=== PATIENT | female | born 1960 | race Caucasian/White ===

== ENCOUNTER → 2016-11-01 | Emergency (ER) | payer OTHER ==
[~2016-11-01] MED LIST: ASPI81TA PO; CALC-317 PO; FLUO20CA19 PO; METO-5 PO; PENT400T21 PO; TRAM50TA2 PO
== END | disposition left against medical advice (07) ==
LOC: ER
DX: M25.552 Pain in left hip (principal); Z53.21 Procedure and treatment not carried out due to patient leaving prior to being seen by health care provider; W19.XXXA Unspecified fall, initial encounter; Y93.89 Activity, other specified; Y99.8 Other external cause status; Y92.89 Other specified places as the place of occurrence of the external cause

== ENCOUNTER 2017-02-25 18:06 | Emergency (ER) | payer OTHER ==
[~2017-02-25] VITALS: Ht 162.6 cm; Wt 53.5 kg
[2017-02-25 18:29] VITALS: BP 101/59
== END 2017-02-26 03:31 | disposition left against medical advice (07) ==
LOC: ER 18:06
DX: R55 Syncope and collapse (principal); M54.5 Low back pain; Z53.21 Procedure and treatment not carried out due to patient leaving prior to being seen by health care provider

== ENCOUNTER 2017-05-19 06:49 | Inpatient (IN) | payer OTHER ==
[~2017-05-19] VITALS: Ht 167.6 cm; Wt 62.0 kg
[2017-05-19] MEDS ORDERED: SODIUM CHLORIDE 0.9% 1,000 ML IV ONE (07:58)
[2017-05-19] MEDS ORDERED: ONDANSETRON HCL 4 MG/2 ML VIAL IV ONE ×2 (08:00→12:45)
[2017-05-19] MEDS ORDERED: MORPHINE SULFATE 4 MG/ML SYR/VIAL IV ONE ×2 (08:00→12:45)
[2017-05-19 08:15] LABS: Basophils # (auto) 0 uL; Eosinophils # (auto) 0 uL; Lymphocytes # (auto) 1.3 uL; Monocytes # (auto) 0.8 uL
[2017-05-19 08:16] LABS: Basophils % (auto) 0.1 % (0.0-2.0); Hematocrit 37.8 % (36.0-46.0); Hemoglobin 12.9 g/dL (12.2-16.2); Lymphocytes % (auto) 10.9 % (10.0-50.0); Mean Corpuscular Hemoglobin 34.3 pg (28.0-32.0); Mean Corpuscular Hgb Conc. 34.2 g/dL (32.0-36.0); Mean Corpuscular Volume 100.2 fL (80.0-100.0); Monocytes % (auto) 6.6 % (0.0-12.0); Neutrophils # (auto) 10.1 uL; Neutrophils % (auto) 82.4 % (37.0-80.0); Nucleated Red Blood Cells % 0.2 %; Platelet Count (auto) 134 10^3/uL (140-450); Red Blood Cells 3.77 10^6/uL (4.0-5.20); Red Cell Distribution Width 14.7 % (11.8-14.3); White Blood Cell 12.2 10^3/uL (4.4-10.8)
[2017-05-19 08:31] LABS: BUN/Creatinine Ratio 13.8; Calcium 8.1 mg/dL (8.5-10.1); Magnesium 1.3 mg/dL (1.6-2.6); Potassium 3.1 mmol/L (3.5-5.1)
[2017-05-19 08:34] LABS: Bilirubin, Total 0.6 mg/dL (0.2-1.0)
[2017-05-19 10:13] LABS: Urine Bacteria NONE SEEN /hpf (None Seen); Urine Blood Negative /uL (Negative); Urine Specific Gravity 1.005 (1.001-1.035); Urine WBC 2 /hpf (0 - 5)
[2017-05-19 10:31] LABS: Amphetamine Screen, Urine NEGATIVE (NEGATIVE); Barbiturate Scree,Urine NEGATIVE (NEGATIVE); Benzodiazephine Screen, Urine NEGATIVE (NEGATIVE); Cannabinoid Screen, Urine POSITIVE (NEGATIVE); Cocaine Screen, Urine NEGATIVE (NEGATIVE); Opiate Scree,Urine POSITIVE (NEGATIVE); Phencyclidine Screen, Urine NEGATIVE (NEGATIVE)
[2017-05-19] MEDS ORDERED: ONDANSETRON HCL 4 MG/2 ML VIAL IV PRN (15:30)
[2017-05-19] MEDS ORDERED: LORazepam 2MG/ML-1ML VIAL IV PRN (15:30)
[2017-05-19] MEDS ORDERED: chlordiazePOXIDE HCL 25 MG CAP PO PRN (15:30)
[2017-05-19] MEDS ORDERED: NITROGLYCERIN 0.4 MG SL TAB SL PRN (15:30)
[2017-05-19] MEDS ORDERED: ACETAMINOPHEN 325 MG TAB PO PRN (15:30)
[2017-05-19] MEDS ORDERED: MORPHINE SULFATE 4 MG/ML SYR/VIAL IV PRN (15:30)
[2017-05-19] MEDS ORDERED: MULTIPLE VITAMIN TAB PO ONE (15:45)
[2017-05-19] MEDS ORDERED: PARoxetine 20 MG TAB PO ONE (15:45)
[2017-05-19] MEDS: GABAPENTIN 300 MG CAP PO SCH ×2 (16:09→21:47)
[2017-05-19] MEDS: HYDROcodone-ACET 5/325MG TAB PO PRN ×2 (16:12→20:15)
[2017-05-19] MEDS: MORPHINE SULFATE 4 MG/ML SYR/VIAL IV PRN ×2 (17:41→22:54)
[2017-05-19 18:45] VITALS: BP 146/86
[2017-05-19] MEDS: CALCIUM W/VIT D (600MG/400IU) TAB PO SCH (18:46)
[2017-05-19] MEDS: BOOST PLUS 8 ounce PO SCH (18:52)
[2017-05-19] MEDS ORDERED: POTASSIUM CHL 10 Meq TABLET PO ONE (19:45)
[2017-05-19 20:00] VITALS: BP 132/74
[2017-05-19 21:42] VITALS: BP 132/74
[2017-05-19] MEDS: FAMOTIDINE 20 MG TAB PO SCH (21:48)
[2017-05-19] MEDS: MAGNESIUM OXIDE 400 MG TAB PO SCH (21:48)
[2017-05-19] MEDS: TEMAZEPAM 15 MG CAP PO PRN (21:48)
[2017-05-19] MEDS: METOPROLOL TARTRATE 25 MG TAB PO SCH (21:49)
[2017-05-19] MEDS: SODIUM CHLOR 0.9% PF (SALINE LOCK) 10ML VIAL IV SCH (21:55)
[2017-05-20] VITALS (7 sets, daily range): BP systolic 118–151; BP diastolic 51–79
[2017-05-20] MEDS: HYDROcodone-ACET 5/325MG TAB PO PRN ×3 (01:31→20:38)
[2017-05-20] MEDS: GABAPENTIN 300 MG CAP PO SCH ×3 (05:53→21:40)
[2017-05-20] MEDS: MORPHINE SULFATE 4 MG/ML SYR/VIAL IV PRN ×4 (05:53→22:40)
[2017-05-20] MEDS: SODIUM CHLOR 0.9% PF (SALINE LOCK) 10ML VIAL IV SCH ×3 (05:54→21:41)
[2017-05-20 06:56] LABS: Basophils # (auto) 0 uL; Basophils % (auto) 0.2 % (0.0-2.0); Eosinophils # (auto) 0 uL; Lymphocytes # (auto) 0.9 uL; Monocytes # (auto) 0.7 uL; Neutrophils # (auto) 6.3 uL; Neutrophils % (auto) 79.3 % (37.0-80.0); Nucleated Red Blood Cells % 0.1 %
[2017-05-20 06:58] LABS: Hematocrit 35.3 % (36.0-46.0); Hemoglobin 12.1 g/dL (12.2-16.2); Lymphocytes % (auto) 11.3 % (10.0-50.0); Mean Corpuscular Hemoglobin 34.9 pg (28.0-32.0); Mean Corpuscular Hgb Conc. 34.4 g/dL (32.0-36.0); Mean Corpuscular Volume 101.4 fL (80.0-100.0); Monocytes % (auto) 9.2 % (0.0-12.0); Platelet Count (auto) 117 10^3/uL (140-450); Red Blood Cells 3.48 10^6/uL (4.0-5.20); Red Cell Distribution Width 15.3 % (11.8-14.3)
[2017-05-20 06:59] LABS: INR 0.94 (0.9-1.15); Prothrombin Time 10.2 sec (9.37-12.3)
[2017-05-20 07:03] LABS: Potassium 3.4 mmol/L (3.5-5.1)
[2017-05-20 07:11] LABS: Albumin 2.6 g/dL (3.4-5.0); BUN/Creatinine Ratio 11.9; Calcium 8.6 mg/dL (8.5-10.1)
[2017-05-20 07:14] LABS: Bilirubin, Total 0.5 mg/dL (0.2-1.0); Total Protein 5.6 g/dL (6.4-8.2)
[2017-05-20] MEDS: CALCIUM W/VIT D (600MG/400IU) TAB PO SCH ×2 (08:20→18:26)
[2017-05-20] MEDS: BOOST PLUS 8 ounce PO SCH ×3 (08:20→18:26)
[2017-05-20] MEDS: FAMOTIDINE 20 MG TAB PO SCH ×2 (10:45→21:40)
[2017-05-20] MEDS: MAGNESIUM OXIDE 400 MG TAB PO SCH ×2 (10:46→21:40)
[2017-05-20] MEDS: MULTIPLE VITAMIN TAB PO SCH (10:46)
[2017-05-20] MEDS: METOPROLOL TARTRATE 25 MG TAB PO SCH ×2 (10:46→21:41)
[2017-05-20] MEDS: PARoxetine 20 MG TAB PO SCH (10:47)
[2017-05-20] MEDS ORDERED: POTASSIUM CHL 10 Meq TABLET PO ONE (11:15)
[2017-05-20] MEDS ORDERED: MULT1TAB23 PO (17:29)
[2017-05-20] MEDS: TEMAZEPAM 15 MG CAP PO PRN (21:41)
[2017-05-21] MEDS: MORPHINE SULFATE 4 MG/ML SYR/VIAL IV PRN ×4 (04:06→20:06)
[2017-05-21 05:44] VITALS: BP 114/67
[2017-05-21] MEDS: HYDROcodone-ACET 5/325MG TAB PO PRN ×3 (06:37→17:30)
[2017-05-21] MEDS: GABAPENTIN 300 MG CAP PO SCH ×3 (06:37→20:07)
[2017-05-21] MEDS: SODIUM CHLOR 0.9% PF (SALINE LOCK) 10ML VIAL IV SCH ×3 (06:38→20:05)
[2017-05-21 06:44] LABS: Basophils # (auto) 0 uL; Eosinophils # (auto) 0 uL; Hematocrit 34.6 % (36.0-46.0); Hemoglobin 11.7 g/dL (12.2-16.2); Lymphocytes # (auto) 1.2 uL; Monocytes # (auto) 0.6 uL; Monocytes % (auto) 8.2 % (0.0-12.0); Nucleated Red Blood Cells % 0.1 %
[2017-05-21 06:46] LABS: Basophils % (auto) 0.2 % (0.0-2.0); Lymphocytes % (auto) 15.5 % (10.0-50.0); Mean Corpuscular Hemoglobin 34.6 pg (28.0-32.0); Mean Corpuscular Hgb Conc. 33.8 g/dL (32.0-36.0); Mean Corpuscular Volume 102.4 fL (80.0-100.0); Neutrophils # (auto) 5.7 uL; Neutrophils % (auto) 76.1 % (37.0-80.0); Red Blood Cells 3.38 10^6/uL (4.0-5.20); Red Cell Distribution Width 14.9 % (11.8-14.3); White Blood Cell 7.5 10^3/uL (4.4-10.8)
[2017-05-21 06:48] LABS: BUN/Creatinine Ratio 15.9; Calcium 9.3 mg/dL (8.5-10.1)
[2017-05-21 06:49] LABS: Platelet Count (auto) 127 10^3/uL (140-450)
[2017-05-21] MEDS: BOOST PLUS 8 ounce PO SCH ×3 (08:54→17:58)
[2017-05-21] MEDS: CALCIUM W/VIT D (600MG/400IU) TAB PO SCH ×2 (08:54→17:26)
[2017-05-21 09:00] VITALS: BP 134/61
[2017-05-21] MEDS: MAGNESIUM OXIDE 400 MG TAB PO SCH ×2 (09:31→20:07)
[2017-05-21] MEDS: MULTIPLE VITAMIN TAB PO SCH (09:31)
[2017-05-21] MEDS: PARoxetine 20 MG TAB PO SCH (09:31)
[2017-05-21] MEDS: FAMOTIDINE 20 MG TAB PO SCH ×2 (09:31→20:07)
[2017-05-21] MEDS: METOPROLOL TARTRATE 25 MG TAB PO SCH ×2 (09:32→20:07)
[2017-05-21] MEDS: DOCUSATE SOD 100 MG CAP PO PRN ×2 (12:16→20:07)
[2017-05-21 13:00] VITALS: BP 136/60
[2017-05-21 17:07] VITALS: BP 138/64
[2017-05-21] MEDS: TEMAZEPAM 15 MG CAP PO PRN (21:30)
[2017-05-21 21:46] VITALS: BP 130/72
[2017-05-22] MEDS: MORPHINE SULFATE 4 MG/ML SYR/VIAL IV PRN ×2 (02:29→09:38)
[2017-05-22] MEDS: HYDROcodone-ACET 5/325MG TAB PO PRN ×2 (04:05→12:05)
[2017-05-22] MEDS: SODIUM CHLOR 0.9% PF (SALINE LOCK) 10ML VIAL IV SCH ×2 (04:05→14:00)
[2017-05-22 05:00] VITALS: BP 124/70
[2017-05-22] MEDS: GABAPENTIN 300 MG CAP PO SCH ×2 (05:43→14:00)
[2017-05-22 07:14] LABS: Albumin 2.2 g/dL (3.4-5.0); BUN/Creatinine Ratio 20.8; Basophils # (auto) 0 uL; Bilirubin, Total 0.2 mg/dL (0.2-1.0); Calcium 8.3 mg/dL (8.5-10.1); Eosinophils # (auto) 0 uL; Monocytes # (auto) 0.7 uL; Nucleated Red Blood Cells % 0.1 %; Potassium 4.2 mmol/L (3.5-5.1); Total Protein 5.4 g/dL (6.4-8.2)
[2017-05-22 07:15] LABS: Basophils % (auto) 0.2 % (0.0-2.0); Hematocrit 33.5 % (36.0-46.0); Hemoglobin 11.3 g/dL (12.2-16.2); Lymphocytes # (auto) 1.3 uL; Lymphocytes % (auto) 18.7 % (10.0-50.0); Mean Corpuscular Hemoglobin 34.7 pg (28.0-32.0); Mean Corpuscular Hgb Conc. 33.8 g/dL (32.0-36.0); Mean Corpuscular Volume 102.7 fL (80.0-100.0); Monocytes % (auto) 9.4 % (0.0-12.0); Neutrophils % (auto) 71.7 % (37.0-80.0); Platelet Count (auto) 142 10^3/uL (140-450); Red Blood Cells 3.26 10^6/uL (4.0-5.20); Red Cell Distribution Width 15.5 % (11.8-14.3)
[2017-05-22 09:00] VITALS: BP 131/60
[2017-05-22] MEDS: BOOST PLUS 8 ounce PO SCH ×2 (09:36→12:05)
[2017-05-22] MEDS: METOPROLOL TARTRATE 25 MG TAB PO SCH (09:37)
[2017-05-22] MEDS: MULTIPLE VITAMIN TAB PO SCH (09:37)
[2017-05-22] MEDS: MAGNESIUM OXIDE 400 MG TAB PO SCH (09:37)
[2017-05-22] MEDS: FAMOTIDINE 20 MG TAB PO SCH (09:38)
[2017-05-22] MEDS: PARoxetine 20 MG TAB PO SCH (09:38)
[2017-05-22] MEDS: CALCIUM W/VIT D (600MG/400IU) TAB PO SCH (09:38)
[2017-05-22 12:53] VITALS: BP 132/62
== END 2017-05-22 14:00 | disposition home or self-care (01) | DRG 563 ==
LOC: EDBD 06:49 → EDSEX 06:49 → ER 06:49 → TELE 06:50 → TELE-WESTW 18:34
PROVIDERS: ADMIT Internal Medicine; ATTEND Internal Medicine
DX: S62.316A Displaced fracture of base of fifth metacarpal bone, right hand, initial encounter for closed fracture (principal); F10.231 Alcohol dependence with withdrawal delirium; R65.10 Systemic inflammatory response syndrome (SIRS) of non-infectious origin without acute organ dysfunction; E44.0 Moderate protein-calorie malnutrition; E87.1 Hypo-osmolality and hyponatremia; E83.42 Hypomagnesemia; E83.51 Hypocalcemia; S42.211A Unspecified displaced fracture of surgical neck of right humerus, initial encounter for closed fracture; S62.101A Fracture of unspecified carpal bone, right wrist, initial encounter for closed fracture; W18.39XA Other fall on same level, initial encounter; E78.5 Hyperlipidemia, unspecified; R74.8 Abnormal levels of other serum enzymes; E87.6 Hypokalemia; F12.10 Cannabis abuse, uncomplicated; F17.210 Nicotine dependence, cigarettes, uncomplicated; R55 Syncope and collapse; R94.5 Abnormal results of liver function studies; F32.9 Major depressive disorder, single episode, unspecified; F41.9 Anxiety disorder, unspecified; I10 Essential (primary) hypertension; Z86.73 Personal history of transient ischemic attack (TIA), and cerebral infarction without residual deficits; Z87.11 Personal history of peptic ulcer disease; Z79.82 Long term (current) use of aspirin; Z79.899 Other long term (current) drug therapy; Z68.22 Body mass index [BMI] 22.0-22.9, adult; Y93.89 Activity, other specified; Y99.8 Other external cause status; Z87.828 Personal history of other (healed) physical injury and trauma; Y92.098 Other place in other non-institutional residence as the place of occurrence of the external cause
CPT/HCPCS: 36415; 70450; 71045; 73030; 73060; 73100; 80048; 80053; 80307; 80320; 81001; 83735; 84443; 85025; 85610; 93005; 93306; 93886; 94761; 96361; 96374; 96375; 96376; 97163; J2405